=== PATIENT | female | born 1945 | race Caucasian/White ===

== ENCOUNTER 2016-06-30 08:41 | Day surgery (SDC) | payer MEDICARE ==
[~2016-06-30] VITALS: Ht 162.6 cm; Wt 57.0 kg
--- NOTE | 2016-06-30 07:31 | PCM.HPANE ---
Patient Data Surgeon Admitting Provider: Attending Provider:Casa Nagel MD Primary Care Physician:Temi Matute MD Other Provider:Nicolasa Plazaingham Anesthesia Reason for Visit Colon Screening, Dysphagia Ht/WT & BMI Body Mass Index Allergies Coded Allergies: rofecoxib (Verified Allergy, Severe, Anaphylaxis, 06/29/16) feels like throat closing , itching , agitation hexachlorophene (Verified Allergy, Unknown, 06/29/16) patient told had allergy to by Past Anesthesia History Anesthesia History: Denies:: Abnormal Airway, Anesthesia Reactions, Difficult Intubation Diabetes History Hx Diabetes?: No MRSA MRSA: No Medications Reported Medications Melatonin/Pyridoxine (Melatonin 3 mg Tablet)1 Each Tablet1 Each PO 06/30/16 Potassium Gluconate (Potassium)99 Mg [id number] Mg PO 06/30/16 [Lido/prilocn cream] No Conflict Check2.5 TOPICAL ONCE PRN For Pain apply thick layer to area prior to procedure cover with saran wrap 01/05/16 [Vitamin D-3 ] No Conflict Check Mg 01/05/16 Multivitamin (Multi Vitamin Daily)1 Each Tablet1 Tablet PO DAILY 30 Days Ref 0 01/05/16 [calcium] No Conflict Check1,250 Mg PO DAILY 01/05/16 Atenolol 25 Mg [id number] Mg PO QPM Ref 0 01/05/16 Aspirin 81 Mg [id number] Mg PO DAILY Ref 0 01/05/16 Discontinued Scripts Amoxicillin/Clav K 875-125 mg (Augmentin 875-125 mg)1 Each Tablet1 Tablet PO BID #10 TABLET Ref 0 Prov:Bhaskar Robertson PA-C 01/06/16 oxyCODONE-Acetaminophen 5-325 mg 1 Each Tablet1-2 Tab PO Q4H PRN For Severe Pain #16 TABLET Prov:Bhaskar Robertson PA-C 01/06/16 History History of ENT Problems?: No HEENT History: Positive for:: Dysphagia (sometimes. ) Denies:: Abnormal Airway Difficult Intubation Hearing Problem Hx of Heart Problems?: Yes Cardiovascular History: Positive for:: Irregular Heartbeat Denies:: Cardiac Surgery Chest Pain Congestive Heart Failure Edema Heart Murmur Hypertension Pacemaker Thrombophlebitis Hx of Respiratory Problem?: No Respiratory History: Positive for:: Pneumonia Denies:: COPD Chest Surgery Dyspnea Emphysema Hemoptysis Tuberculosis Hx Neurologic Problems?: No Neurological History: Positive for:: Headaches (just recently ) Denies:: Alzheimer's Disease CVA Dementia Dizziness Parkinson's Disease Seizures Hx of GI Problems?: Yes Gastrointestinal History: Positive for:: Diverticulitis Gastroesphageal Reflux (with overeating. ) Rectal Bleeding Denies:: Gastrointestinal Bleeding Heartburn Hepatitis Hiatal Hernia Hx of Problems?: No Genitourinary History: Denies:: HX of Hemodialysis Kidney Stones Urinary Tract Infection HX of Peritoneal Dialysis: No Female Hx: Denies:: Currently (menapause.) Endometriosis Pelvic Inflammatory Problems with Breasts? Hx Musculoskeletal Problems?: Yes Musculoskeletal History: Positive for:: Back Injury (sciatica , ) Denies:: Joint Replacement Musculoskeletal Trauma Hx of Psycho/Social Problems?: No Hx Surgeries?: Yes (tonsillectomy, tubaligation ) Hx Any Other Health Problems?: Yes Other History: Positive for:: Hospitalization Denies:: Cancer Thyroid Disease History Blood Transfusions: Denies:: Blood Transfuse Reaction Blood Transfusions Hx Diabetes: No Hx Alcohol Use: Yes (rarely )Hx Substance Use: NoHave You Smoked inLast 12 mo : No Stop/Bang Risk Assessment Category Category 1A: Patient has history of documented sleep apnea, and HAS NOT received any narcotic, sedative or anesthesia administration during this stay. Category 1B: Patient has history of documented sleep apnea, and HAS received any narcotic , sedative or anesthesia administration during this stay Category 2: Patient has SUSPECTED Obstructive Sleep Apnea, and HAS received any narcotic , sedative or anesthesia administration during this stay. Category 3: Patient has SUSPECTED Obstructive Sleep Apnea and HAS NOT received narcotic, sedative or anesthesia administration during this stay. Category 4: Outpatient in Procedural Areas with known sleep apnea or who screen positive for High Risk via the STOP/BANG questionnaire. Exam Exam General Appearance: Alert, Oriented X3, Cooperative, No Acute Distress HEENT/AIRWAY: MP 1 Lungs: Normal Air Movement Heart: Regular Rate/Rhythm Plan Impression Patient chart reviewed, patient interviewed and anesthestic plan with risks, benefits, and alternatives discussed, and informed consent obtained. ASA Physical Status: ASA3 Severe Disease Anesthetic Plan: MAC Bene/Risks/Altern/Consents: Yes HP Complete Prior to Induction: Yes Vanna De La Vega DO Jun 30, 2016 07:31
[~2016-06-30 08:41] MED LIST: ASPI-973 PO; ATEN25TA PO; LIDO TOPICAL; Lactated Ringer's 1,000 ML IV ONE; MULT-1018 PO; Vitamin D-3; [UNRECOGNIZED DRUG - OTHER] TOPICAL; calcium PO
[2016-06-30] MEDS ORDERED: Propofol 10,000 mCg/mL 20 mL Inj ONE ×2 (08:42)
[2016-06-30 08:55] VITALS: BP 147/94; PULSE 72; RESP 16; O2SAT 99
[2016-06-30] MEDS ORDERED: POTA99TA21 PO (09:11)
[2016-06-30] MEDS ORDERED: MELA1TAB11 PO (09:11)
[2016-06-30 10:04] VITALS: BP 89/56; PULSE 62; RESP 12; O2SAT 96
--- NOTE | 2016-06-30 10:07 | PCM.ANEP2 ---
Post Anesthesia Evaluation ASA/CMS Post Anesthesia VS in Patient's Normal Range?: Yes Resp Stable; Airway Patent?: Yes CV Function & Hydration Stable: Yes Mental Status Recovered?: Yes Pain control Satisfactory?: Yes N/V Control Satisfactory?: Yes Vanna De La Vega DO Jun 30, 2016 10:07
--- NOTE | 2016-06-30 10:07 | PCM.ANEP1 ---
Post Anesthesia Phase 1 PACU Phase 1 Assessment Vital Signs Vital Signs Date Time Temp Pulse Resp B/P Pulse Ox O2 Delivery O2 Flow Rate FiO2 06/30/16 10:04 35.8 62 12 89/56 96 Room Air 06/30/16 08:55 37 72 16 147/94 99 Room Air Anesthetic Administered: MAC Level of Alertness: Sleepy, easy to arouse MOORE's with Equal Strength: Yes Pain: No Nausea or Vomiting: No Oxygen Delivery: Room Air Lungs: Normal Air Movement Vanna De La Vega DO Jun 30, 2016 10:07
[2016-06-30 10:11] VITALS: BP 109/68; PULSE 69; RESP 16; O2SAT 99
[2016-06-30 10:22] VITALS: BP 114/68; PULSE 78; RESP 16; O2SAT 98
--- NOTE | 2016-06-30 11:17 | ENDO ---
[address] [address] ENDOSCOPY PROCEDURE PATIENT: SHALINI PETERS : 1945 MR#: [id number] ADMIT: 06/30/2016 JOB ID: [id number] DATE OF SERVICE: 06/30/2016 PRIMARY PROVIDER: Temi Matute MD. PROCEDURE: 1. Esophagogastroduodenoscopy. 2. Colonoscopy. INDICATIONS: A 71-year-old female with intermittent esophageal spasm type symptoms. These have been going on for some 10 years now. Repeat EGD was requested. She has a family history of gastric cancer. Repeat colon cancer screening was additionally requested. EQUIPMENT: GIF-H180J and a PCF-H180AL. SEDATION: Monitored anesthesia was provided by Dr. Vanna De La Vega. COMPLICATIONS: None identified. BOWEL PREPARATION: Excellent. PROCEDURE IN DETAIL: After the risks and benefits were explained, written and verbal informed consent was obtained. The patient was brought into the endoscopy suite and placed into the left lateral decubitus position. Sedation was achieved using the above-stated medications with the addition of oxygen via nasal cannula. The scope introduced into the mouth through the bite block, and advanced under direct visualization to the second portion of the duodenum. The scope was slowly withdrawn to carefully examine the mucosa for any defects or lesions. Retroflexed views were accomplished in the stomach. The stomach was decompressed. The scope removed from the patient who tolerated the procedure well. The patient was then turned around. A digital rectal examination accomplished. Aside from internal hemorrhoids, no other significant pathology was appreciated. The scope was introduced into the rectum and advanced to the cecum as identified by the appendiceal orifice and ileocecal valve. The scope was slowly withdrawn to carefully examine the mucosa for any defects or lesions. Retroflexed views were avoided in the rectum. Multiple direct views were made through the dentate line for exclusion of pathology. The colon was decompressed. The scope removed from the patient who tolerated the procedure well. FINDINGS: 1. Duodenum: This appeared visually unremarkable from the bulb through to the second portion. 2. Stomach: No ulcers. No mass lesions. No outlet obstruction. No significant mucosal pathology appreciated throughout. Retroflexed views of the LES were unremarkable. 3. Esophagus: The squamocolumnar junction correlated with the top of the gastric folds. The GEJ was at 40 cm from the incisors. No acute erosive changes. No strictures. No mass lesions. The esophagus was unremarkable throughout. 4. Colon: Slightly tortuous left colon. Mild diverticulosis in the sigmoid region. No significant polyps, mass lesions, or inflammatory features identified throughout. ENDOSCOPIC DIAGNOSES: 1. Visually unremarkable esophagogastroduodenoscopy. 2. Colonic diverticulosis. 3. Hemorrhoids. RECOMMENDATIONS: 1. Repeat colonoscopy in 10 years' time. 2. If symptoms persist with respect to swallowing difficulties, then I would recommend a 24-hour pH evaluation and manometry.
== END 2016-06-30 23:59 | disposition home or self-care (01) ==
LOC: END 08:41
PROVIDERS: ATTEND Internal Medicine Gastroenterology
DX: Z12.11 Encounter for screening for malignant neoplasm of colon (principal); K57.30 Diverticulosis of large intestine without perforation or abscess without bleeding; K64.8 Other hemorrhoids; R13.10 Dysphagia, unspecified; R51 Headache; Z79.82 Long term (current) use of aspirin; Z79.899 Other long term (current) drug therapy